=== PATIENT | female | born 1965 | race Two or more races ===

== ENCOUNTER 2025-06-17 06:33 | Emergency (ER) | payer OTHER ==
[~2025-06-17] VITALS: Ht 157.5 cm; Wt 53.5 kg
[2025-06-17] MEDS ORDERED: KETOROLAC TROMETHAMINE 30 MG VIAL IV STA (07:59)
== END 2025-06-17 13:11 | disposition home or self-care (01) ==
LOC: ER 06:33
DX: R07.89 Other chest pain (principal); R42 Dizziness and giddiness; Z91.041 Radiographic dye allergy status
CPT/HCPCS: 36415; 71046; 96365; 99283; J1885